=== PATIENT | female | born 1955 ===

== ENCOUNTER 2022-01-02 06:32 | Day surgery (SDC) | payer OTHER ==
[2022-01-01 15:22] LABS: Absolute Lymphocytes (CBC) 1.9 K/uL (0.7-4.9); Hematocrit 42.1 % (36.0-45.0); MPV 7.4 fL (7.6-11.3); RBC Red Blood Cell Count 4.62 M/uL (3.86-4.86)
--- NOTE | 2022-01-01 15:28 | RAD REPORT ---
EXAM DESCRIPTION: RAD - Chest Pa And Lat (2 Views) - 01/01/2022 3:21 pm CLINICAL HISTORY: Pre op Chest pain. COMPARISON: Chest Pa And Lat (2 Views) dated 10/29/2017; Chest Pa And Lat (2 Views) dated 10/13/2016; C hest Pa And Lat (2 Views) dated 10/12/2016; CHEST PA AND LAT 2 VIEW dated 09/13/2015 FINDINGS: The lungs are clear. The heart is normal in size. No displaced fractures. IMPRESSION: No acute or concerning finding suspected.
[2022-01-01 15:58] LABS: SARS-CoV-2 Antigen Rapid Res Negative (Negative)
[2022-01-02] MEDS ORDERED: Ringers Lactate 1,000 ML IV ONE (06:45)
[2022-01-02] MEDS ORDERED: LIDOCAINE 1% MPF 5 ML VIAL ONE (07:09)
[2022-01-02] MEDS ORDERED: propofoL 200 MG/20 ML VIAL IV ONE (07:09)
[2022-01-02] MEDS ORDERED: FENTANYL CITR 100 MCG/2 ML ONE (07:09)
[2022-01-02] MEDS ORDERED: MIDAZOLAM HCL 2 MG/2 ML INJ ONE (07:09)
[2022-01-02] MEDS: CEFAZOLIN SODIUM 1 GM/VIAL ONE ×2 (07:16→07:45)
[2022-01-02] MEDS ORDERED: NS 0.9% VIAL 10 ML ONE (07:54)
[2022-01-02] MEDS ORDERED: KETOROLAC 30 MG/ML INJ ONE (07:55)
[2022-01-02] MEDS ORDERED: ONDANSETRON 4 MG/2 ML VIAL ONE (08:05)
--- NOTE | 2022-01-02 08:05 | P.BOP ---
Preoperative diagnosis: tender retained foreign body right thumb Postoperative diagnosis: same Primary procedure: wound exploration under anesthesia with removal subq mass/FB R thumb Estimated blood loss: <5cc Specimen: granuloma mass with FB Findings: visualized thin curved FB on specimen Anesthesia: General Complications: None Transferred to: Recovery Room Condition: Good
[2022-01-02 09:06] VITALS: BP 109/54; TEMP 99.5; O2SAT 94
--- NOTE | 2022-01-02 12:54 | EKG ---
Test Date: 2022-01-01 Test Time: 15:01:29 [employer]: SUNDAR MEASUREMENT RESULTS: Intervals: Rate: 60 MD: 192 QRSD: 76 QT: 404 QTc: 404 [place]: P: 0 MD: 192 QRS: 29 T: 26 INTERPRETIVE STATEMENTS: Normal sinus rhythm Normal ECG Compared to ECG 10/12/2016 12:04:14 No significant changes Electronically Signed On 01-02-22 12:53:53 CDT by Zackery Greenwood
--- NOTE | 2022-01-02 13:01 | OP ---
Date of Procedure: 01/02/2022 Surgeon: Dre Figueroa MD Preoperative Diagnosis: Tender thumb with retained foreign body. Postoperative Diagnosis: Tender thumb with retained foreign body. Procedure: Wound exploration under anesthesia with removal of foreign body in the right thumb. Estimated Blood Loss: Less than 5 cc. Specimen: Granulomatous lesion with possible foreign body inside. Findings: Visualized thin, curve foreign body, may be like she claimed is a part of the cactus and v isualized on the granuloma like lesion that we excised from the area. Anesthesia: MAC plus local. Indication: This is the case of a female, who comes to us with a sore mass on the thumb. It looked like a granuloma formation. She believes she has a foreign body there. She believe it is part of a cactus. She has been trying to deal with this for a long time, trying to see if it goes away. It noland s not gone away. It is getting more tender, more pronounced. She wants that mass and the foreign jeet dy if possible removed. The benefits, alternatives, and risks of wound exploration with possible rem oval of foreign body and excision of that granuloma fully explained to the patient, which include, bu t not limited to infection, bleeding, damage to adjacent structures, anesthesia complication, recurre nce, MO, and even . She also understands that even though we remove that granuloma and that sub cutaneous mass from that region still we might not be able to find the foreign body in that area sinc e this could be organic. She understands the risks and signed the consent. Procedure In Detail: The patient was brought to the operating room, placed in supine position. Anes thesia was done without complication. A time-out was called. Right hand was prepped and draped in t he usual sterile fashion. We have an area of concern that we marked and the patient in the holding r oom. It is an area of granuloma, which is a hard nodule on the subcutaneous tissue on the volar aspe ct of the distal thumb. Using a curved knife in the form of a 3 mm circular knife, we proceeded to c arefully go and follow the tract of this foreign body. This excision included also removing the lump that the patient has in the subcutaneous tissue with the same specimen. When we put that knife dottie welch about 0.3 x 0.5 cm deep and we removed that, we were able to see specifically the something that lo oked like a foreign body like she describes which is a thin, black, spiculated area right on the spec imen. We did not see any foreign body anywhere else. This is all intact in that, so we sent the spe cimen as 1 block to be seen by the pathologist. We looked in that area and explored the area. We co uld not see any other foreign body, the mass and the lump comes with the specimen. We irrigated the area and covered with sterile dressings, left to close by secondary intention. The patient tolerated the procedure well. Local anesthesia was applied before closure. The patient was sent to recovery in stable condition. THEO/PASCUAL Voice ID: [id number] Report ID: [id number]
--- NOTE | 2022-01-02 13:01 | DS ---
Date of Discharge: 01/02/2022 Diagnosis: A mass in the thumb area with a probable retained foreign body. Procedure: Wound exploration under anesthesia with removal of foreign body/subcutaneous mass. Disposition: Home. Activity: As tolerated. No heavy lifting. Plan: Keep area dry intact until tomorrow. She may clean with soap and water and then put Bactroban over the area and sterile dressings. THEO/PASCUAL Voice ID: [id number] Report ID: [id number]
== END 2022-01-02 08:57 | disposition home or self-care (01) ==
LOC: OR 06:32
PROVIDERS: ATTEND Surgery
PROC: 0JBJ0ZZ Excision of Right Hand Subcutaneous Tissue and Fascia, Open Approach (ICD-10-PCS; principal; 2022-01-02 07:30)
DX: M60.241 Foreign body granuloma of soft tissue, not elsewhere classified, right hand (principal); Z20.822 Contact with and (suspected) exposure to COVID-19
CPT/HCPCS: 11421; 93005; 85025; 80048; 36415; 88300; 71046; 87811; J2704; J2250; J3010; J7120; J2405; J0690; 88305

== ENCOUNTER 2022-12-14 08:47 | Emergency (ER) | payer OTHER ==
--- OUTSIDE RECORDS SUMMARY | 2022-12-14 08:50 | XMS REPORT | Continuity of Care Document ---
:1955 Author Organization [facility] t Address [address] [place] [address] [place] [id number] Care Team Providers Name Role Phone GAYE SALAS Primary Care Physician Unavailable NGOC HOYOS Attending Clinician Unavailable Ngoc Hoyos MD Attending Clinician ART PENALOZA Attending Clinician Unavailable Art Penaloza MD Attending Clinician Doctor Unassigned, [place] Attending Clinician Unavailable RADIOLOGY Attending Clinician Unavailable Radiology Attending Clinician Unavailable WAQAS DEL VALLE Attending Clinician Unavailable ART PENALOZA Admitting Clinician Unavailable Art Penaloza MD Admitting Clinician CASSIE RAMIREZ Admitting Clinician Unavailable Payers Payer Name Policy Type Policy Number Effective Date Expiration Date S mel MEDICARE A B [id number] 2020 00:00:00 [facility] [id number] MEDIC[facility] PART A \T\ [id number] 2020 B 00:00:00 [facility] [id number] SUPPLEMENTAL Problems Condition Condition Condition Status Onset Resolution Last Treating Co mments Source Name Details Category Date Date Treatment Clinician Date Neuropathy Neuropath Problem Active 2021-02-07 Memoria y Active 04:11:17 l Problem Davian 02/07/2021 [facility] Hot Hot Problem Active 2021-02-07 Memor ia flushes, flushes, 04:11:17 l perimenopa perimenopa He rmann usal usal Active Problem 02/07/2021 [facility] Type 2 Type 2 Problem Active 2021-02-07 Jonnie justa diabetes diabetes 04:11:17 l mellitus mellitus [place] n with with hyperglyce hyperglyce mariluz mariluz Active Problem 02/07/2021 [facility] Prediabete Problem Active 2021-02-07 M emoria s Prediabete 04:11:17 l s Active [place] Problem 02/07/2021 [facility] Weight Weight Diagnosis Active 2020-12-29 Me moria gain gain 04:10:17 l Active [place] Diagnosis 12/29/2020 [facility] Allergies, Adverse Reactions, Alerts Allergy Allergy Status Severity Reaction(s) Onset Inactive Treating Comm ents Source Name Type Date Date Clinician ADHESIVE DRUG Active Med Rash Univers TAPE-CARMELO 2-22 ity of ICONES 00:00: [address] LATEX, Drug Active Med ITCHING Univers NATURAL Class 2-22 ity of RUBBER 00:00: [place] [facility] Adhesive Drug Active Rash Univers Tape-Carmelo Intolera 2-22 ity of icones nce 00:00: [place] [facility] Latex, Drug Active Itching Latex Univers Natural Intolera 2-22 gloves ity of Rubber nce 00:00: [address] N.K.D.A. N.K.D.A. Active Info Not Jonnie justa Available 6-24 l 00:00: Davian 00 NO KNOWN Drug Active Univers ALLERGIE Class ity of S [facility] Family History Family Member Diagnosis Comments Start Date Stop Date Source Maternal grandmother Lupus [facility] Social History Social Habit Start Date Stop Date Quantity Comments Source Gender identity 2020-11-20 Identifies as Method ist 12:53:35 female gender Hospital (finding) Sexual orientation [facility] Exposure to 2022-08-18 2022-08-28 Not sure [facility]-CoV-2 (event) 00:00:00 12:40:00 [facility] Tobacco use and 2022-08-28 2022-08-28 Smokeless tobacco Un iversity of exposure 00:00:00 00:00:00 non-user [facility] Alcohol intake 2020-08-17 2020-08-17 Ex-drinker [facility] 00:00:00 00:00:00 (finding) Hospital History of Social 2020-08-17 2020-08-[address] function 00:00:00 00:00:00 Hospital Sex Ass[birth year] OLIVIA Sanchez 00:00:00 00:00:00 [facility] Center Smoking Status Start Date Stop Date Source Tobacco smoking consumption [facility] Never smoked tobacco [facility] Medications Ordered Filled Start Stop Current Ordering Indication Dosage Frequency Signature Comments Components Source Medication Medication Date Date Medication? Clinician (SIG) Name Name lactated 2022- No 1000mL at 42 Unive rs ringers IV 09-04 mL/hr, ity of infusion 15:45: 15:42 1,000 mL, [place] as 1,000 mL 00 :00 IV Medical Infusion, Branch ONCE, 1 dose, On Fri09/04/22 at 0945, Routine, DSU Pre-op lactated 2022- No 1000mL at 42 Unive rs ringers IV 09-04 mL/hr, ity of infusion 15:45: 15:42 1,000 mL, [place] as 1,000 mL 00 :00 IV Medical Infusion, Branch ONCE, 1 dose, On Fri09/04/22 at 0945, Routine, DSU Pre-op water for 2022- No PRN, Univers irrigation 09-04 Starting ity of irrigation 15:42: 16:56 on Fri [place] solution 00 :32 09/04/22 at Medica l 0942, Branch Until Fri09/04/22 at 1056, Routine, Intra-op simethicone 2022- No PRN, Unive rs (GAS RELIEF 09-04 Starting ity of (SIMETHICON 15:41: 16:56 on Fri [place] as E)) 40 00 :32 09/04/22 at Medical mg/0.6 mL 0941, Branch drops Until Fri09/04/22 at 1056, Routine, Intra-op celecoxib 2020-07 Yes TAKE ONE Meth heena (CeleBREX) 1-10 (1) st 200 MG 00:00: CAPSULE(S) Hospi ta capsule 00 BY MOUTH l DAILY. OneTouch Yes JONGOH STU E11.65 as Memoria Ultra 6-28 directed l 00:00: Davian 00 OneTouch Yes JONGOH STU E11.65 as Memoria Ultra 6-28 directed l 00:00: Davian 00 Alcohol Yes JONGOH STU not Jonnie justa Prep Pad 6-25 defined l 04:10: Davian Glucose Yes JONGOH STU as Jonnie justa Meter Test 6-25 directed l 04:10: Davian Rosuvastati Yes JONGOH STU not Memoria n Calcium 6-25 defined l 04:10: Davian Xopenex Yes JONGOH STU not Jonnie justa 6-25 defined l 04:10: Davian Celebrex Yes JONGOH STU not Mem oria 6-25 defined l 04:10: Davian MetFORMIN Yes JONGOH STU 1 tablet Memoria HCl ER 6-25 with l 04:10: evening Davian meal Viibryd Yes JONGOH STU not Jonnie justa 6-25 defined l 04:10: Davian Levocetiriz Yes JONGOH STU not Memoria ine 6-25 defined l Dihydrochlo 04:10: [place] ride 17 Glucose Yes JONGOH STU as Jonnie justa Blood 6-25 directed l 04:10: Davian Lancet Yes JONGOH STU E11.9, as Memoria Device with 6-25 directed l Ejector 04:10: Davian 17 Lancets Yes JONGOH STU use to Me moria 6-25 check l 04:10: fingerstic [place] 17 k blood glucose Advair 0 Yes JONGOH STU not Memor ia Diskus 6-25 defined l 04:10: Davian Barker Lancets 33G 0 Yes JONGOH STU as Memoria 6-25 directed l 04:10: Davian Barker Alcohol 0 Yes JONGOH STU not Jonnie justa Prep Pad -25 defined l 04:10: Davian Barker Glucose 0 Yes JONGOH STU as Jonnie justa Meter Test 6-25 directed l 04:10: Davian Barker Rosuvastati 0 Yes JONGOH STU not Memoria n Calcium 6-25 defined l 04:10: Davian Barker Xopenex 0 Yes JONGOH STU not Jonnie justa 6-25 defined l 04:10: Davian Barker Celebrex 0 Yes JONGOH STU not Mem oria 6-25 defined l 04:10: Davian Barker MetFORMIN 0 Yes JONGOH STU 1 tablet Memoria HCl ER -25 with l 04:10: evening Davian Barker meal Viibryd 0 Yes JONGOH STU not Jonnie justa 6-25 defined l 04:10: Davian Barker Levocetiriz 0 Yes JONGOH STU not Memoria ine 6-25 defined l Dihydrochlo 04:10: Tico gutierrez 17 Advair 0 Yes JONGOH STU not Memor ia Diskus 6-25 defined l 04:10: Davian Barker Singulair 0 Yes JONGOH STU not Me moria 6-25 defined l 04:10: Davian Barker Singulair 0 Yes JONGOH STU not Me moria 6-25 defined l 04:10: Davian Barker Gabapentin 0 Yes JONGOH STU not M emoria 6-25 defined l 04:10: Davian Barker Gabapentin 0 Yes JONGOH STU not M emoria 6-25 defined l 04:10: Davian Barker Lancets 33G 0 Yes JONGOH STU as Memoria 6-25 directed l 04:10: Davian Barker Glucose 0 Yes JONGOH STU as Jonnie justa Blood 6-25 directed l 04:10: Davian Barker Lancet 2021-0 Yes JONGOH STU E11.9, as Memoria Device with 6-25 directed l Ejector 04:10: Davian 17 Lancets Yes DARRELL PERAZA use to Me moria 6-25 check l 04:10: fingerstic [place] 17 k blood glucose Lancets Yes DARRELL PERAZA R73.03, M emoria 6-04 33G, as l 00:00: directed [place] 00 Lancets Yes DARRELL PERAZA R73.03, M emoria 6-04 33G, as l 00:00: directed 00 MetFORMIN 2020-0 Yes DARRELL PERAZA 1 tablet Memoria HCl ER 6-03 with l 00:00: evening Davian 00 meal MetFORMIN Yes DARRELL PERAZA 1 tablet Memoria HCl ER 6-03 with l 00:00: evening [place] 00 meal aspirin 0 Yes 81mg QD Take 81 mg Meth heena (ECOTRIN) 2-[address] 81 MG 09:39: daily. Hospita enteric 56 l coated tablet triamcinolo Yes into each M ethodi ne 2-[address] acetonide 09:39: Hospita (NASACORT 56 l NASL) omeprazole Yes 10mg QD Take 10 mg M ethodi (PriLOSEC) 2-[address] 10 MG 09:39: daily. Hospita capsule 56 l levocetiriz Yes 5mg QD Take 5 mg M ethodi ine (Xyzal) 2-[address] 5 MG tablet 09:39: every Hospi ta 56 evening. l ascorbic 0 Yes Take by Method i acid 2-[address] (VITAMIN C 09:39: Hospita ORAL) 56 l MAGNESIUM 0 Yes Take by Metho di GLUCONATE 2-[address] ORAL 09:39: Hospita 56 l ZINC ORAL 2020-0 Yes Take by Metho di 2-[address] 09:39: Hospita 56 l MULTIVITAMI 2020-0 Yes Take by Met hodi N ORAL 2-[address] 09:39: Hospita 56 l omega-3s/dh 2020-0 Yes Take by Met hodi a/epa/fish 2-[address] oil (OMEGA 09:39: Hospita 3 ORAL) 56 l coenzyme Yes 100mg QD Take 100 Meth heena Q10 (Co 2-[address] Q-10) 100 09:39: mouth Hospita mg capsule 56 daily. l ergocalcife Yes [id number] Q7D Take Meth heena rol 2-11 50,000 [address] (Vitamin 09:39: Units by Hospi ta D2) 50,000 56 mouth once l unit a week. capsule gabapentin 2019-07 Yes Q.5D Take by Meth heena (NEURONTIN) 2-[address] 300 mg 00:00: (two) Hospita capsule 00 times a l day. levalbutero 2019-07 Yes INHALE 2 Me thodi l (XOPENEX 2-[address] HFA) 45 00:00: 4 TO 6 H Hospit a mcg/actuati 00 PRN WHILE l on inhaler AWAKE rosuvastati 2019-07 Yes 10mg QD Take 10 mg Methodi n (CRESTOR) 1-[address] 10 mg 00:00: daily. Hospita tablet 00 l Advair 2019-07 Yes INHALE ONE Metho di Diskus 1-17 (1) st 100-50 00:00: PUFF(S) BY Hospi ta mcg/dose 00 MOUTH l DISKUS TWICE DAILY. RINSE MOUTH AFTER USE. montelukast 2019-07 Yes 10mg QD Take 10 mg Methodi (SINGULAIR) 1-[address] 10 mg 00:00: daily. Hospita tablet 00 l Vital Signs Vital Name Observation Time Observation Value Comments Source Systolic blood 2022-09-04 17:10:00 120 mm[Hg] Univer sit of [facility] Diastolic blood 2022-09-04 17:10:00 88 mm[Hg] [facility] Heart rate 2022-09-04 17:10:00 60 /min [facility] Respiratory rate 2022-09-04 17:10:00 14 /min [facility] Oxygen saturation in 2022-09-04 17:10:00 96 /min [facility] Arterial blood by [facility] Pulse oximetry Branch Body temperature 2022-09-04 16:45:00 36.56 Tere [facility] Body height 2022-08-28 18:00:00 175.3 cm [facility] Body weight 2022-08-28 18:00:00 83.915 kg [facility] BMI 2022-08-28 18:00:00 27.32 kg/m2 [facility] Systolic blood 2022-09-04 17:00:00 127 mm[Hg] Univer sity of pressure [facility] Diastolic blood 2022-09-04 17:00:00 69 mm[facility]Hg] [facility] Heart rate 2022-09-04 17:00:00 59 /min [facility] Respiratory rate 2022-09-04 17:00:00 17 /min [facility] Oxygen saturation in 2022-09-04 17:00:00 95 /min [facility] Arterial blood by [facility] Pulse oximetry Branch Body temperature 2022-09-04 16:45:00 36.56 Tere [facility] Body height 2022-08-28 18:00:00 175.3 cm [facility] Body weight 2022-08-28 18:00:00 83.915 kg [facility] BMI 2022-08-28 18:00:00 27.32 kg/m2 [facility] Systolic (mm Hg) 2020-12-07 16:30:00 Jonnie rial [place] Weight 2020-12-07 16:30:00 [facility] Davian Height 2020-12-07 16:30:00 [facility] Davian Temperature Oral (F) 2020-12-07 16:30:00 92.6 F [facility] Davian Heart Rate 2020-12-07 16:30:00 [facility] Davian Diastolic (mm Hg) 2020-12-07 16:30:00 Mem orial Davian Procedures Procedure Date / Time Performing Clinician Source Performed COLONOSCOPY 2022-09-04 16:04:00 Art Penaloza [facility] COLONOSCOPY (ENDO) 2022-09-04 16:02:13 [facility] COLONOSCOPY (ENDO) 2022-09-04 16:02:13 [facility] EXTERNAL PROVIDER 2022-09-03 06:01:00 Doctor Unassigned, No [facility] EXTERNAL PROVIDER 2022-08-09 06:01:00 Doctor Unassigned, No [facility] RECORDS Name Medical Branch EXTERNAL PROVIDER 2022-08-09 06:01:00 Doctor Unassigned, No [facility] RECORDS Name Medical Branch DEXA AXIAL (HIP AND 2022-04-11 18:29:08 [facility], [facility] Medical Branch ASSIGNMENT OF BENEFITS 2022-03-25 15:50:56 Doctor Unassigned, No [facility] Name Medical Branch Plan of Care Planned Activity Planned Date Details Comments Source Future Scheduled 2023-03-[address] [facility] Test 00:00:00 (Season Ended) [code = [facility] INFLUENZA VACCINE (Season Ended)] Future Scheduled 2022-12-14 [facility] Test 05:01:26 malignant neoplasm of colon (procedure) [code = 943508200] Future Scheduled 2022-12-14 [facility] Test 05:01:26 malignant neoplasm of colon (procedure) [code = 716849686] Future Scheduled 2022-12-14 [facility] Test 05:01:26 malignant neoplasm of colon (procedure) [code = 920670320] Future Scheduled 2022-12-14 COVID-19 VACCINE (#1) [facility] Test 05:01:26 [code = COVID-19 VACCINE (#1)] Future Scheduled 2022-12-14 Hepatitis C screening [facility] Test 05:01:26 (procedure) [code = 712201253] Future Scheduled 2022-12-14 BREAST CANCER [facility] Test 05:01:26 SCREENING [code = BREAST CANCER SCREENING] Future Scheduled 2022-12-14 [facility] Test 05:01:26 malignant neoplasm of colon (procedure) [code = 491649733] Future Scheduled 2022-12-14 [facility] Test 05:01:26 malignant neoplasm of colon (procedure) [code = 777155776] Future Scheduled 2022-12-14 SHINGLES VACCINES (1 [facility] Test 05:01:26 of 2) [code = SHINGLES VACCINES (1 of 2)] Future Scheduled 2022-12-14 65+ [facility]OCOCCAL [facility] Test 05:01:26 VACCINE (1 - PCV) [code = 65+ PNEUMOCOCCAL VACCINE (1 - PCV)] Future Scheduled 2022-12-14 INFLUENZA VACCINE [facility] Hospital Test 05:01:26 [code = INFLUENZA VACCINE] Future Scheduled 2022-07-[address] [facility] Test 00:00:00 (12+) [code = Medical Center DEPRESSION SCREENING (12+)] Future Scheduled 2022-07-07 FALLS RISK SCREENING [facility] Test 00:00:00 [code = FALLS RISK Medical C enter SCREENING] Future Scheduled 2021-07-[address] [facility] Test 00:00:00 WELLNESS (YEAR 2 or Medical Center FIRST YEAR if no IPPE) [code = MEDICARE ANNUAL WELLNESS (YEAR 2 or FIRST YEAR if no IPPE)] Future Scheduled 2020 PNEUMOCOCCAL 65+ YRS [facility] Test 00:00:00 (1 - PCV) [code = Medical Ce nter PNEUMOCOCCAL 65+ YRS (1 - PCV)] Future Scheduled 2005 SHINGLES VACCINES ([address] [facility] Test 00:00:00 of 2) [code = SHINGLES Medic al Center VACCINES (1 of 2)] Future Scheduled 1974 DTAP/TDAP/TD [facility]ACCINES [facility] Test 00:00:00 (1 - Tdap) [code = Medical C enter DTAP/TDAP/TD VACCINES (1 - Tdap)] Future Scheduled 1973 HEPATITIS C [facility]CREENING [facility] 00:00:00 [code = HEPATITIS C Medical Center SCREENING] Future Scheduled [address] [facility] Test 00:00:00 Counseling and Medical Cente r Screening (12+) [code = Tobacco Cessation Counseling and Screening (12+)] Future Scheduled 1956-01-15 COVID-19 VACCINE (#1) [facility] Test 00:00:00 [code = COVID-[address] VACCINE (#1)] Future Scheduled [address] [facility] Test 00:00:00 malignant neoplasm of Medica l Center colon (procedure) [code = 331754925] Future Scheduled [address] [facility] [facility] Test 00:00:00 malignant neoplasm of [facility] colon (procedure) [code = 238301251] Future Scheduled 1955 DXA SCAN [code = DXA [facility] Test 00:00:00 SCAN] [facility] Future Scheduled [address] [facility] Test 00:00:00 malignant neoplasm of [facility] colon (procedure) [code = 730070815] Future Scheduled [address] [facility] Test 00:00:00 malignant neoplasm of [facility] colon (procedure) [code = 972726922] Future Scheduled 1955 Sigmoidoscopy [code = [facility]:00:00 Sigmoidoscopy] [facility] Future Scheduled [address] [facility] Test 00:00:00 malignant neoplasm of [facility] breast (procedure) [code = 078762792] Future Scheduled [address] Colonography [facility] Test 00:00:00 (combo) [code = CT Medical C enter Colonography (combo)] Encounters Start End Encounter Admission Attending Care Care Encounter Source Date/Time Date/Time Type Type Clinicians Facility Department ID 2022-12-14 Outpatient [id number] Memoria 08:49:20 [id number] Davian [id number] 2022-09-04 Outpatient [id number] Memoria 09:26:48 [id number] Davian [id number] 2021-09-06 Outpatient [facility] [id number] Common 13:38:02 [facility] 2023-01-02 2023-01-02 Outpatient TUSHAR HOYOS [facility] [id number] SLE 00:00:00 00:00:00 NGOC 2022-12-17 2022-12-17 Outpatient TUSHAR HOYOS [facility] [id number] SLEH 00:00:00 00:00:00 [facility] 2022-12-10 2022-12-10 Outside Soha [facility] [id number] 00:[facility]00 00:00:00 Orders [facility] 2022-12-04 2022-12-04 [facility] [id number] 08:00:00 08:00:00 Encounter Aknino [facility] 2022-12-04 2022-12-04 Outpatient TUSHAR HOYOS [facility] [id number] SLE 00:00:00 00:00:00 [facility] 2022-11-04 2022-11-04 [facility] [id number] 00:[facility]:00 00:00:00 Orders [facility] 2022-09-04 2022-09-04 Outpatient R [facility] [id number] Univers 09:12:00 11:24:00 ART Escobar f [facility] 2022-09-04 2022-09-04 [facility] [id number] Univers 09:12:00 11:24:00 Encounter Art escobar [id number] ity [facility] [id number]ICAL [id number] [facility] 071 Branch 2022-09-04 2022-09-04 Surgery [facility] [id number] Univers 10:23:00 11:02:00 Art escobar [id number] ity [facility] [id number] [id number] [facility] 020 Branch 2022-09-03 2022-09-03 Orders Doctor MEJIA [id number] Univers 00:00:00 00:00:00 Only Unassigned, DAVID [id number] ity of [place] [facility] [id number] [place] as [id number] [facility] 009 Branch 2022-04-11 2022-04-11 Outpatient R RADIOLOGY [facility] [id number] Univers 13:08:41 23:59:00 ity of [facility] 2022-04-11 2022-04-11 Hospital Radiology [facility] [id number] Univers 13:08:41 23:59:00 Encounter [place] [id number] ity of [id number] [place] [id number] [facility] 800 Branch 2022-04-04 2022-04-04 Outpatient R RADIOLOGY [facility] [id number] Univers 00:00:00 00:00:00 ity of [facility] 2022-03-25 2022-03-25 [facility] Radiology [facility] [id number] Univers 11:00:41 23:59:00 Encounter [place] [id number] ity of [place] [id number] [facility] [id number] [facility] 800 Branch 2022-03-25 2022-03-25 Outpatient R RADIOLOGY [facility] [id number] Univers 11:00:41 23:59:00 ity of [facility] 2022-03-25 2022-03-25 Orders Doctor MEJIA [id number] Univers 00:00:00 00:00:00 Only Unassigned, DAVID [id number] [facility] [id number] [place] [id number] [facility] 009 Branch 2021-01-24 2021-01-24 Outpatient Endocrine Endocrine & [id number] eClinic 16:24:00 16:24:00 & Diabetes Gloria calix [facility] [place] [facility] 2021-01-03 2021-01-03 Outpatient Endocrine Endocrine & [id number] eClinic 12:50:00 12:50:00 & Diabetes Gloria calix [facility] [place] [facility] 2021-01-01 2021-01-01 Outpatient Endocrine Endocrine & [id number] eClinic 16:32:00 16:32:00 & Diabetes alWor ks [facility] 2020-12-28 2020-12-28 Outpatient CONFIRM CONFIRM [id number] eClinic 10:15:00 10:15:00 VIRTUAL VIRTUAL alWork s 2020-12-12 2020-12-12 Outpatient Endocrine Endocrine & [id number] eClinic 10:26:00 10:26:00 & Diabetes alWor ks [facility], [facility] [place] [facility] 2020-12-12 2020-12-12 Outpatient Endocrine Endocrine & [id number] eClinic 09:45:00 09:45:00 & Diabetes alWor ks [facility] Plus of [facility], [facility] [place] [facility] 2020-12-12 2020-12-12 Outpatient Endocrine Endocrine & [id number] eClinic 09:41:00 09:41:00 & Diabetes alWor ks [facility] Plus of [facility], [facility] [place] [facility] 2020-12-08 2020-12-08 Outpatient Endocrine Endocrine & [id number] eClinic 16:27:00 16:27:00 & Diabetes alWor ks [facility] Plus of [facility], [facility] [place] [facility] 2020-12-08 2020-12-08 Outpatient Endocrine Endocrine & [id number] eClinic 16:27:00 16:27:00 & Diabetes alWor ks [facility] Plus of [facility], [facility] [place] [facility] 2020-12-08 2020-12-08 Outpatient Endocrine Endocrine & [id number] eClinic 15:33:00 15:33:00 & Diabetes alWor ks [facility] of [facility], Office [place] [facility] 2020-12-07 2020-12-07 Outpatient Endocrine Endocrine & [id number] eClinic 11:30:00 11:30:00 & Diabetes alWor ks [facility] Plus of [facility], Office [place] [facility] 2020-11-22 2020-11-22 Outpatient [facility] [id number] [place] 00:00:00 00:00:00 MOHAMMED [address] 2020-08-17 2020-08-17 Outpatient [facility] [id number] 785 [place] 00:00:00 00:00:[address] Results This patient has no known results.
[2022-12-14] MEDS ORDERED: NA CHLORIDE 0.9% 1,000 ML ONE ×2 (09:33→10:52)
[2022-12-14] MEDS ORDERED: KETOROLAC 30 MG/ML INJ ONE (09:33)
[2022-12-14] MEDS ORDERED: PROMETHAZINE INJ 25 MG/ML AMP ONE (09:33)
[2022-12-14] MEDS ORDERED: NA CHLORIDE 0.9% 250 ML ONE (09:33)
[2022-12-14] MEDS ORDERED: FAMOTIDINE 20 MG/2 ML VIAL IV ONE (09:33)
--- NOTE | 2022-12-14 09:38 | RAD REPORT ---
[facility] 9:19 am CLINICAL HISTORY: KIDNEY STONES COMPARISON: No comparisons TECHNIQUE: CT of the abdomen and pelvis was performed. All CT scans are performed using dose optimization technique as appropriate and may include automated exposure control or mA/KV adjustment according to patient size. FINDINGS: Lower chest: No acute abnormality. Partially imaged breast prostheses. Liver: No acute abnormality or suspicious lesions. Biliary: No biliary ductal dilatation. Cholecystectomy Stomach: No significant focal abnormality. Duodenum: No significant focal abnormality. Pancreas: No significant abnormality. Spleen: No significant abnormality. Adrenal: No suspicious lesions. Kidney/ureter: Right-sided hydroureteronephrosis secondary to a 3 mm stone impacted at the right UVJ. Retroperitoneum: No retroperitoneal adenopathy. Vascular: No aneurysm. Bowel: No significant focal abnormality. Peritoneum: No ascites or free air. Small fat containing umbilical hernia. Bladder: Grossly unremarkable. Reproductive: No adnexal masses. Bones: No acute fracture. Other: n/a IMPRESSION: Mild right-sided hydroureteronephrosis secondary to a 3 mm stone at the right UVJ.
[2022-12-14] MEDS ORDERED: HYDROMORPHONE HCL 1 MG/ML INJ ONE (10:02)
[2022-12-14 10:05] LABS: Hematocrit 41.8 % (36.0-45.0); Lymphocytes % 20.6 % (15.3-44.8); MCV 91.6 fL (80-100); MPV 7.3 fL (7.6-11.3); RBC Red Blood Cell Count 4.56 M/uL (3.86-4.86)
[2022-12-14 10:15] LABS: Urine Bacteria <20 /HPF (<20); Urine Bilirubin NEGATIVE (Negative); Urine Blood 1+ (Negative); Urine Clarity Extremely Turbid (Clear); Urine Color Light-Yellow (Yellow); Urine Crystals Unidentified Few /HPF (None Seen); Urine Glucose NEGATIVE (Negative); Urine Mucus Slight /HPF (None Seen); Urine Protein TRACE (Negative); Urine RBC 21-50 /HPF (None Seen); Urine Urobilinogen Normal (Normal)
[2022-12-14 10:23] LABS: Albumin 3.6 g/dL (3.4-5.0); Bilirubin Total 0.5 mg/dL (0.2-1.0); Potassium 3.3 mEq/L (3.5-5.1); Protein, Total 7.3 g/dL (6.4-8.2)
[2022-12-14] MEDS ORDERED: NA CHLORIDE 0.9% 50 ML ONE (10:37)
[2022-12-14] MEDS ORDERED: CEFTRIAXONE 2000 MG/VIAL ONE (10:37)
[2022-12-14] MEDS ORDERED: TAMSULOSIN 0.4 MG SR CAP ONE (10:52)
--- NOTE | 2022-12-14 11:13 | ER ---
Nurse's Notes [facility] Name: Monet Beverly Age: 67 yrs Sex: Female : 1955 Arrival Date: 12/14/2022 Time: 08:47 Bed 16 Private MD: Diagnosis: Hydronephrosis with renal and ureteral calculous obstruction Presentation: 12/14 09:06 Chief complaint: Patient states: R FLANK PAIN RADIATING TO R GROIN SINCE LAST PM. bp Coronavirus screen: At this time, the client does not indicate any symptoms associated with coronavirus-19. Ebola Screen: No symptoms or risks identified at this time. Initial Sepsis Screen: Does the patient meet any 2 criteria? No. Patient's initial sepsis screen is negative. Does the patient have a suspected source of infection? No. Patient's initial sepsis screen is negative. Risk Assessment: Do you want to hurt yourself or someone else? Patient reports no desire to harm self or others. Onset of symptoms was December 14, 2022. 09:06 Method Of Arrival: Ambulatory bp 09:06 Acuity: CARROLL 3 bp Triage Assessment: 09:07 General: Appears distressed, uncomfortable, Behavior is cooperative, appropriate for bp age, anxious. Pain: Complains of pain in right flank. EENT: No deficits noted. Neuro: No deficits noted. Cardiovascular: No deficits noted. Respiratory: No deficits noted. GI: No signs and/or symptoms were reported involving the gastrointestinal system. : Reports pain in right flank(s). Derm: No deficits noted. Musculoskeletal: No deficits noted. Historical: - Allergies: 09:07 Latex, Natural Rubber; bp - Home Meds: 09:07 None [Active]; bp - PMHx: 09:07 None; bp - Immunization history:: Adult Immunizations. - Social history:: Smoking status: . Screenin:15 [facility] ED Fall Risk Assessment (Adult) Score/Fall Risk Level 0 - 2 = Low Risk. Abuse eh3 screen: Denies threats or abuse. Denies injuries from another. Nutritional screening: No deficits noted. Tuberculosis screening: No symptoms or risk factors identified. Assessment: 09:15 General: Appears distressed, uncomfortable. Pain: Complains of pain in right lower eh3 quadrant and right low back and right flank Pain currently is 10 out of 10 on a pain scale. Neuro: Level of Consciousness is awake, alert, obeys commands, Oriented to person, place, time, situation. Cardiovascular: Capillary refill < 3 seconds Patient's skin is warm and dry. Respiratory: Airway is patent Respiratory effort is even, unlabored, Respiratory pattern is regular, symmetrical. GI: Abdomen is round non-distended, Bowel sounds present X 4 quads. Abd is soft X 4 quads Abdomen is tender to palpation in right lower quadrant. : No signs and/or symptoms were reported regarding the genitourinary system. EENT: No signs and/or symptoms were reported regarding the EENT system. Derm: Skin is pink, warm \T\ dry. Musculoskeletal: No signs and/or symptoms reported regarding the musculoskeletal system. 10:00 Reassessment: Patient appears in no apparent distress at this time. Patient and/or eh3 family updated on plan of care and expected duration. Pain level reassessed. Patient is alert, oriented x 3, equal unlabored respirations, skin warm/dry/pink. Patient states symptoms have improved. 11:00 Reassessment: Patient appears in no apparent distress at this time. Patient and/or eh3 family updated on plan of care and expected duration. Pain level reassessed. Patient is alert, oriented x 3, equal unlabored respirations, skin warm/dry/pink. 12:00 Reassessment: Patient appears in no apparent distress at this time. Patient and/or eh3 family updated on plan of care and expected duration. Pain level reassessed. Patient is alert, oriented x 3, equal unlabored respirations, skin warm/dry/pink. Pt ambulated with steady gate 25 feet, no assistance needed. Vital Signs: 09:06 BP 139 / 79; Pulse 65; Resp 16; Temp 97.5; Pulse Ox 100% ; bp 09:45 BP 124 / 67; Pulse 88; Resp 18; Pulse Ox 100% on R/A; eh3 10:00 BP 139 / 68; Pulse 69; Resp 18; Pulse Ox 99% on R/A; eh3 11:00 BP 125 / 55; Pulse 58; Resp 18; Pulse Ox 95% on R/A; eh3 12:00 BP 134 / 71; Pulse 58; Resp 18; Pulse Ox 98% on R/A; eh3 ED Course: 08:49 Patient arrived in ED. ts1 08:58 Gemini Rivas FNP-C [facility] snw 08:58 Maykel Davila MD is Attending Physician. snw 09:07 Triage completed. bp 09:15 Patient has correct armband on for positive identification. Bed in low position. Call eh3 light in reach. Side rails up X2. Adult w/ patient. Pulse ox on. NIBP on. Door closed. Noise minimized. Lights dimmed. 09:15 Arm band placed on. eh3 09:17 Anat Brody RN is Primary Nurse. eh3 09:20 CT Stone Protocol In Process Unspecified. EDMS 09:35 Inserted saline lock: 20 gauge in left antecubital area, using aseptic technique. Blood eh3 collected. 12:07 No provider procedures requiring assistance completed. IV discontinued, intact, eh3 bleeding controlled, No redness/swelling at site. Pressure dressing applied. Administered Medications: 09:35 Drug: NS 0.9% IV 1000 ml Route: IV; Rate: 1 bolus; Site: left antecubital; eh3 10:30 Follow up: IV Status: Completed infusion; IV Intake: 1000ml eh3 09:35 Drug: Famotidine IVP 20 mg Route: IVP; Site: left antecubital; eh3 10:30 Follow up: Response: No adverse reaction eh3 09:35 Drug: TORadol - Ketorolac IVP 15 mg Route: IVP; Site: left antecubital; eh3 10:30 Follow up: Response: No adverse reaction eh3 09:40 Drug: Promethazine IVP 25 mg Route: IVP; Site: left antecubital; eh3 10:30 Follow up: Response: No adverse reaction eh3 09:40 Drug: NS 0.9% IV 250 ml Route: IV; Rate: bolus; Site: left antecubital; eh3 10:30 Follow up: IV Status: Completed infusion; IV Intake: 250ml eh3 09:58 Drug: HYDROmorphone IVP 1 mg Route: IVP; Site: left antecubital; eh3 10:30 Follow up: Response: No adverse reaction; Pain is decreased eh3 10:45 Drug: Rocephin IV 2 grams Route: IV; Rate: calculated rate; Site: left antecubital; eh3 11:29 Follow up: Response: No adverse reaction; IV Status: Completed infusion; IV Intake: [id number] 10:45 Drug: Flomax PO 0.4 mg Route: PO; eh3 11:30 Follow up: Response: No adverse reaction eh3 10:45 Drug: NS 0.9% IV 1000 ml Route: IV; Rate: 1000 ml; Site: left antecubital; eh3 12:06 Follow up: IV Status: Completed infusion; IV Intake: 1000ml eh3 Medication: 12:07 VIS not applicable for this client. eh3 Intake: 10:30 IV: 1000ml; Total: 1000ml. eh3 10:30 IV: 250ml; Total: 1250ml. eh3 11:29 IV: 50ml; Total: 1300ml. eh3 12:06 IV: 1000ml; Total: 2300ml. eh3 Outcome: 11:12 Discharge ordered by . snw 12:08 Discharged to home ambulatory, with significant other. eh3 12:08 Condition: stable 12:08 Discharge instructions given to patient, significant other, Instructed on discharge instructions, follow up and referral plans. medication usage, Demonstrated understanding of instructions, follow-up care, medications, Prescriptions given X 3. 12:17 Patient left the ED. eh3 Signatures: Dispatcher [employer] EDMS Gemini Rivas, MACHINE OVERHAULER-C MACHINE OVERHAULER-Csnw Michael Orozco RN RN Anat Ching RN RN 3 Rosa Perez, CLOVER PAS ts1 Corrections: (The following items were deleted from the chart) 10:17 09:45 Reassessment: Patient appears in no apparent distress at this time. Patient eh3 and/or family updated on plan of care and expected duration. Pain level reassessed. Patient is alert, oriented x 3, equal unlabored respirations, skin warm/dry/pink. Patient states symptoms have improved. eh3
--- NOTE | 2022-12-14 11:13 | EDPHYS ---
Physician Documentation [facility] Name: Monet Beverly Age: 67 yrs Sex: Female : 1955 Arrival Date: 12/14/2022 Time: 08:47 Bed 16 Private MD: ED Physician Maykel Davila HPI: 12/14 09:11 This 67 yrs old Unknown Female presents to ER via Ambulatory with complaints of snw Abdominal Pain, Back Pain. 09:11 The patient presents with abdominal pain right lower quadrant. Onset: The snw symptoms/episode began/occurred suddenly, and became persistent. The symptoms radiate to right back. Associated signs and symptoms: Pertinent positives: nausea and vomiting. The symptoms are described as sharp, steady. Severity of pain: At its worst the pain was moderate severe in the emergency department the pain is unchanged. The patient has not experienced similar symptoms in the past. The patient has not recently seen a physician. Historical: - Allergies: 09:07 Latex, Natural Rubber; bp - Home Meds: 09:07 None [Active]; bp - PMHx: 09:07 None; bp - Immunization history:: Adult Immunizations. - Social history:: Smoking status: . ROS: 09:09 Eyes: Negative for injury, pain, redness, and discharge, ENT: Negative for injury, snw pain, and discharge, Neck: Negative for injury, pain, and swelling, Cardiovascular: Negative for chest pain, palpitations, and edema, Respiratory: Negative for shortness of breath, cough, wheezing, and pleuritic chest pain, MS/Extremity: Negative for injury and deformity, Skin: Negative for injury, rash, and discoloration, Neuro: Negative for headache, weakness, numbness, tingling, and seizure, Psych: Negative for depression, anxiety, suicide ideation, homicidal ideation, and hallucinations. 09:09 Constitutional: Positive for right lower quad pain that awoke patient from sleep, pain goes straight through abd to right lower back, sharp in nature. . 09:09 Abdomen/GI: Positive for abdominal pain, nausea, vomiting, of the right lower quadrant. 09:09 Back: Positive for radiated pain, of the right low back. 09:09 : Positive for urinary symptoms. Exam: 09:07 Head/Face: Normocephalic, atraumatic. Eyes: Pupils equal round and reactive to light, snw extra-ocular motions intact. Lids and lashes normal. Conjunctiva and sclera are non-icteric and not injected. Cornea within normal limits. Periorbital areas with no swelling, redness, or edema. ENT: Nares patent. No nasal discharge, no septal abnormalities noted. Tympanic membranes are normal and external auditory canals are clear. Oropharynx with no redness, swelling, or masses, exudates, or evidence of obstruction, uvula midline. Mucous membranes moist. Neck: Trachea midline, no thyromegaly or masses palpated, and no cervical lymphadenopathy. Supple, full range of motion without nuchal rigidity, or vertebral point tenderness. No Meningismus. Chest/axilla: Normal chest wall appearance and motion. Nontender with no deformity. No lesions are appreciated. Cardiovascular: Regular rate and rhythm with a normal S1 and S2. No gallops, murmurs, or rubs. Normal PMI, no JVD. No pulse deficits. Respiratory: Lungs have equal breath sounds bilaterally, clear to auscultation and percussion. No rales, rhonchi or wheezes noted. No increased work of breathing, no retractions or nasal flaring. Abdomen/GI: Soft, tender to right lower quad with normal bowel sounds. No distension or tympany. No guarding or rebound. Back: No spinal tenderness. No costovertebral tenderness. Full range of motion. right lower back pain Skin: Warm, dry with normal turgor. Normal color with no rashes, no lesions, and no evidence of cellulitis. MS/ Extremity: Pulses equal, no cyanosis. Neurovascular intact. Full, normal range of motion. Neuro: Awake and alert, GCS 15, oriented to person, place, time, and situation. Cranial nerves II-XII grossly intact. Motor strength 5/5 in all extremities. Sensory grossly intact. Cerebellar exam normal. Normal gait. 09:07 Constitutional: The patient appears alert, awake, anxious, in obvious pain, uncomfortable. 09:07 Psych: Behavior/mood is anxious. Vital Signs: 09:06 BP 139 / 79; Pulse 65; Resp 16; Temp 97.5; Pulse Ox 100% ; bp 09:45 BP 124 / 67; Pulse 88; Resp 18; Pulse Ox 100% on R/A; eh3 10:00 BP 139 / 68; Pulse 69; Resp 18; Pulse Ox 99% on R/A; eh3 11:00 BP 125 / 55; Pulse 58; Resp 18; Pulse Ox 95% on R/A; eh3 12:00 BP 134 / 71; Pulse 58; Resp 18; Pulse Ox 98% on R/A; eh3 MDM: 08:59 Patient medically screened. snw 11:17 Differential diagnosis: non-specific abd pain, Pyelonephritis, Ureterolithiasis, snw urinary tract infection. Data reviewed: vital signs, nurses notes. I considered the following discharge prescriptions or medication management in the emergency department Medications were administered in the Emergency Department. See MAR. Counseling: I had a detailed discussion with the patient and/or guardian regarding: the historical points, exam findings, and any diagnostic results supporting the discharge/admit diagnosis, lab results, radiology results, the need for outpatient follow up, for definitive care, to return to the emergency department if symptoms worsen or persist or if there are any questions or concerns that arise at home. Response to treatment: the patient's symptoms have markedly improved after treatment. Special discussion: Based on the patient's Hx, exam, and Dx evaluation, there is no indication for emergent surgery or inpatient Tx. It is understood by the patient/guardian that if the Sx's persist or worsen they need to return immediately for re-evaluation. Based on the history and exam findings, there is no indication for further emergent testing or inpatient evaluation. I discussed with the patient/guardian the need to see the urologist for further evaluation of the symptoms. 11:47 ED course: Significantly improved, pt encouraged to stay hydrated, change positions snw slowly. 12/14 09:06 Order name: CBC with Diff; Complete Time: 10:11 snw 12/14 09:06 Order name: CMP; Complete Time: 10:26 snw 12/14 09:06 Order name: Lipase; Complete Time: 10:26 snw 12/14 09:06 Order name: Urinalysis w/ reflexes; Complete Time: 10:26 snw 12/14 10:29 Order name: Urine Culture EDMS 12/14 09:06 Order name: CT Stone Protocol; Complete Time: 09:40 snw 12/14 09:06 Order name: IV Saline Lock; Complete Time: 09:58 snw 12/14 09:06 Order name: Labs collected and sent; Complete Time: 09:58 snw 12/14 11:48 Order name: [facility]. Order: ambulate pt please; Complete Time: 12:06 snw Administered Medications: 09:35 Drug: NS 0.9% IV 1000 ml Route: IV; Rate: 1 bolus; Site: left antecubital; eh3 10:30 Follow up: IV Status: Completed infusion; IV Intake: 1000ml eh3 09:35 Drug: Famotidine IVP 20 mg Route: IVP; Site: left antecubital; eh3 10:30 Follow up: Response: No adverse reaction eh3 09:35 Drug: TORadol - Ketorolac IVP 15 mg Route: IVP; Site: left antecubital; eh3 10:30 Follow up: Response: No adverse reaction eh3 09:40 Drug: Promethazine IVP 25 mg Route: IVP; Site: left antecubital; eh3 10:30 Follow up: Response: No adverse reaction eh3 09:40 Drug: NS 0.9% IV 250 ml Route: IV; Rate: bolus; Site: left antecubital; eh3 10:30 Follow up: IV Status: Completed infusion; IV Intake: 250ml eh3 09:58 Drug: HYDROmorphone IVP 1 mg Route: IVP; Site: left antecubital; eh3 10:30 Follow up: Response: No adverse reaction; Pain is decreased eh3 10:45 Drug: Rocephin IV 2 grams Route: IV; Rate: calculated rate; Site: left antecubital; eh3 11:29 Follow up: Response: No adverse reaction; IV Status: Completed infusion; IV Intake: [id number] 10:45 Drug: Flomax PO 0.4 mg Route: PO; eh3 11:30 Follow up: Response: No adverse reaction eh3 10:45 Drug: NS 0.9% IV 1000 ml Route: IV; Rate: 1000 ml; Site: left antecubital; eh3 12:06 Follow up: IV Status: Completed infusion; IV Intake: 1000ml eh3 Disposition: 13:05 Co-signature as Attending Physician, Maykel Davila MD I reviewed the patient's care rn provided by the Advanced Practice Provider and agree with the diagnosis and treatment plan. Disposition Summary: 12/14/22 11:12 Discharge Ordered Location: Home snw Condition: Stable snw Diagnosis - Hydronephrosis with renal and ureteral calculous obstruction snw Followup: snw - With: Emergency Department - When: As needed - Reason: Worsening of condition Followup: snw - With: Private Physician - When: 1 - 2 days - Reason: Recheck today's complaints, Continuance of care, Re-evaluation by your physician Discharge Instructions: - Discharge Summary Sheet snw - Kidney Stones snw - Renal Colic snw - Hydronephrosis snw - Dietary Guidelines to Help Prevent Kidney Stones snw - Rehydration, Adult snw Forms: - Medication Reconciliation Form snw - Thank You Letter snw - Antibiotic Education snw - Prescription Opioid Use snw Prescriptions: - acetaminophen-codeine 300-15 mg Oral tablet - take 1 tablet by ORAL route every 6 hours; 21 tablet; Refills: 0, Product snw Selection Permitted - Augmentin 875-125 mg Oral Tablet - take 1 tablet by ORAL route every 12 hours for 10 days; 20 tablet; Refills: 0, snw Product Selection Permitted - promethazine 25 mg Oral Tablet - take 1 tablet by ORAL route every 6 hours As needed; 20 tablet; Refills: 0, snw Product Selection Permitted Signatures: Dispatcher [employer] EDMS Gemini Rivas, BILLING SPECIALIST-C BILLING SPECIALIST-Csnw Maykel Davila MD MD rn Peltier, Brian RN RN Anat Ching RN RN 3
[2022-12-14 12:36] VITALS: TEMP 97.5
[2022-12-14 12:53] VITALS: BP 134/71; O2SAT 98
== END 2022-12-14 12:17 | disposition home or self-care (01) ==
LOC: ER 08:47
DX: N13.2 Hydronephrosis with renal and ureteral calculous obstruction (principal); Z91.040 Latex allergy status; Z91.048 Other nonmedicinal substance allergy status
CPT/HCPCS: 96365; 96367; 96361; 87088; 85025; 81001; 87086; 36415; 83690; 80053; 76377; 74176; 96375; 99285; J2550; J1170; J0696; J7050; J7030 ×2

== ENCOUNTER 2022-12-14 18:12 | Emergency (ER) | payer OTHER ==
--- OUTSIDE RECORDS SUMMARY | 2022-12-14 18:16 | XMS REPORT | Continuity of Care Document ---
:[address] [facility] t Address [address] [place] [address] [place] [id number] Care Team Providers Name Role Phone Enmanuel Pettity Primary Care Physician NGOC DELACRUZ Attending Clinician Unavailable Ngoc Delacruz MD Attending Clinician ART VARELA Attending Clinician Unavailable Art Varela MD Attending Clinician Doctor Unassigned, [place] Attending Clinician Unavailable RADIOLOGY Attending Clinician Unavailable Radiology Attending Clinician Unavailable WAQAS DEL VALLE Attending Clinician Unavailable ART VARELA Admitting Clinician Unavailable Art Varela MD Admitting Clinician CASSIE RAMIREZ Admitting Clinician Unavailable Payers Payer Name Policy Type Policy Number Effective Date Expiration Date S mel MEDICARE A B [id number] 2020 00:00:00 [facility] [id number] MEDICARE PART A \T\ [id number] 2020 B 00:00:00 [facility] [id number] SUPPLEMENTAL Problems Condition Condition Condition Status Onset Resolution Last Treating Co mments Source Name Details Category Date Date Treatment Clinician Date Neuropathy Neuropath Problem Active 2021-02-07 Memoria y Active 04:11:17 l Problem [place] 02/07/2021 [facility] Hot Hot Problem Active 2021-02-07 Memor ia flushes, flushes, 04:11:17 l perimenopa perimenopa He rmann usal usal Active Problem 02/07/2021 [facility] Type 2 Type 2 Problem Active 2021-02-07 Jonnie justa diabetes diabetes 04:11:17 l mellitus mellitus Tico n with with hyperglyce hyperglyce mariluz mariluz Active Problem 02/07/2021 [facility] Prediabete Prediabet Problem Active 2021-02-07 Memoria s es Active 04:11:17 l Problem [place] 02/07/2021 [facility] Weight Weight Diagnosis Active 2020-12-29 Me moria gain gain 04:10:17 l Active [place] Diagnosis 12/29/2020 [facility] Allergies, Adverse Reactions, Alerts Allergy Allergy Status Severity Reaction(s) Onset Inactive Treating Comm ents Source Name Type Date Date Clinician ADHESIVE DRUG Active Med Rash Univers TAPE-CARMELO 2-22 ity of ICONES 00:00: [address] LATEX, Drug Active Med ITCHING Univers NATURAL Class 2-22 ity of RUBBER 00:00: [place] [facility] Adhesive Drug Active Rash Univers Tape-Carmelo Intolera 2-22 ity of icones nce 00:00: [place] [facility] Latex, Drug Active Itching Latex Univers Natural Intolera 2-22 gloves ity of Rubber nce 00:00: [address] N.K.D.A. N.K.D.A. Active Info Not Jonnie justa Available 6-24 l 00:00: Davian 00 NO KNOWN Drug Active Univers ALLERGIE Class ity of S [facility] Family History Family Member Diagnosis Comments Start Date Stop Date Source Maternal grandmother Lupus [facility] Social History Social Habit Start Date Stop Date Quantity Comments Source Gender identity 2020-11-20 Identifies as [facility] 12:53:35 female gender Hospital (finding) Sexual orientation [facility] Exposure to 2022-08-18 2022-08-28 Not sure University SARS-CoV-2 (event) 00:00:00 12:40:00 [facility] Tobacco use and 2022-08-28 2022-08-28 Smokeless tobacco Un iversity of exposure 00:00:00 00:00:00 non-user [facility] Alcohol intake 2020-08-17 2020-08-17 Ex-drinker [facility] 00:00:00 00:00:00 (finding) Hospital History of Social 2020-08-17 2020-08-[address] function 00:00:00 00:00:00 Hospital Sex Ass[birth year] OLIVIA Sanchez 00:00:00 00:00:00 [facility] Smoking Status Start Date Stop Date Source Tobacco smoking consumption [facility] Never smoked tobacco [facility] Medications Ordered Filled Start Stop Current Ordering [...] ta capsule 00 BY MOUTH l DAILY. celecoxib 2020-07 Yes TAKE ONE Meth heena (CeleBREX) 1-10 (1) st 200 MG 00:00: CAPSULE(S) Hospi ta capsule 00 BY MOUTH l DAILY. OneTouch Yes ANELNGOH STU E11.65 as Memoria Ultra 6-28 directed l 00:00: Davian 00 OneTouch Yes JONGOH STU E11.65 as Memoria Ultra 6-28 directed l 00:00: Davian 00 OneTouch Yes JONGOH STU E11.65 as Memoria Ultra 6-28 directed l 00:00: [place] 00 Lancets Yes JONGOH STU use to Me moria 6-25 check l 04:10: fingerstic Davian k blood glucose Alcohol Yes DARRELL PERAZA not Jonnie justa Prep Pad 6-25 defined l 04:10: Davian Glucose Yes JONGOH STU as Jonnie justa Meter Test 6-25 directed l 04:10: Davian Rosuvastati Yes JONGOH STU not Memoria n Calcium 6-25 defined l 04:10: Davian Xopenex Yes JONGOH STU not Jonnie justa 6-25 defined l 04:10: Davian Celebrex Yes JONGOH STU not Mem oria 6-25 defined l 04:10: Davian MetFORMIN Yes JOJULIO C STU 1 tablet Memoria HCl ER 6-25 with l 04:10: evening Davian meal Viibryd Yes JONGOH STU not Jonnie justa 6-25 defined l 04:10: Davian Levocetiriz Yes JONGOH STU not Memoria ine 6-25 defined l Dihydrochlo 04:10: Tico gutierrez 17 Advair Yes JONGOH STU not Memor ia Diskus 6-25 defined l 04:10: Davian Barker Singulair 0 Yes JONGOH STU not Me moria 6-25 defined l 04:10: Davian Barker Glucose Yes JONGOH STU as Jonnie justa Blood 6-25 directed l 04:10: Davian 17 Lancet 0 Yes JONGOH STU E11.9, as Memoria Device with 6-25 directed l Ejector 04:10: Davian 17 Lancets Yes JONGOH STU use to Me moria 6-25 check l 04:10: fingerstic Davian 17 k blood glucose Lancets 33G 0 Yes JONGOH STU as Memoria 6-25 directed l 04:10: Davian Barker Alcohol Yes JONGOH STU not Jonnie justa Prep Pad 6-25 defined l 04:10: Davian Barker Gabapentin 0 Yes JONGOH STU not M emoria 6-25 defined l 04:10: Davian Barker Glucose 0 Yes JONGOH STU as Jonnie justa Meter Test 6-25 directed l 04:10: Davian Barker Rosuvastati Yes JONGOH STU not Memoria n Calcium 6-25 defined l 04:10: Davian Barker Xopenex Yes JONGOH STU not Jonnie justa 6-25 defined l 04:10: Davian Barker Celebrex Yes JONGOH STU not Mem oria 6-25 defined l 04:10: Davian Barker MetFORMIN 0 Yes JONGOH STU 1 tablet Memoria HCl ER 6-25 with l 04:10: evening Davian Barker meal Viibryd Yes JONGOH STU not Jonnie justa 6-25 defined l 04:10: Davian Barker Levocetiriz 0 Yes JONGOH STU not Memoria ine 6-25 defined l Dihydrochlo 04:10: Tico gutierrez 17 Advair Yes JONGOH STU not Memor ia Diskus 6-25 defined l 04:10: Davian Barker Singulair Yes JONGOH STU not Me moria 6-25 defined l 04:10: Davian Barker Gabapentin 0 Yes JONGOH STU not M emoria 6-25 defined l 04:10: Davian Barker Glucose 0 Yes JONGOH STU as Jonnie justa Blood 6-25 directed l 04:10: Davian Barker Lancet 0 Yes JONGOH STU E11.9, as Memoria Device with 6-25 directed l Ejector 04:10: Davian 17 Lancets 0 Yes JONGOH STU use to Me moria 6-25 check l 04:10: fingerstic Davian 17 k blood glucose Lancets 33G 0 Yes JONGOH STU as Memoria 6-25 directed l 04:10: Davian Barker Alcohol 0 Yes JONGOH STU not Jonnie justa Prep Pad 6-25 defined l 04:10: Davian Barker Glucose Yes JONGOH STU as Jonnie justa Meter Test 6-25 directed l 04:10: Davian Barker Rosuvastati Yes JONGOH STU not Memoria n Calcium 6-25 defined l 04:10: Davian Barker Xopenex Yes JONGOH STU not Jonnie justa 6-25 defined l 04:10: Davian Barker Celebrex Yes JONGOH STU not Mem oria 6-25 defined l 04:10: Davian Barker MetFORMIN 0 Yes JONGOH STU 1 tablet Memoria HCl ER 6-25 with l 04:10: evening Davian Barker meal Viibryd 0 Yes JONGOH STU not Jonnie justa 6-25 defined l 04:10: Davian Barker Levocetiriz 0 Yes JONGOH STU not Memoria ine 6-25 defined l Dihydrochlo 04:10: Tico auguste ride 17 Advair 0 Yes JONGOH STU not Memor ia Diskus 6-25 defined l 04:10: Davian Barker Singulair 0 Yes JONGOH STU not Me moria 6-25 defined l 04:10: Davian Barker Gabapentin 0 Yes JONGOH STU not M emoria 6-25 defined l 04:10: Davian Barker Lancets 33G 2021-0 Yes JONGOH STU as Memoria 6-25 directed l 04:10: [place] 17 Glucose Yes DARRELL PERAZA as Jonnie justa Blood 6-25 directed l 04:10: [place] 17 Lancet Yes DARRELL PERAZA E11.9, as Memoria Device with 6-25 directed l Ejector 04:10: [place] Lancets Yes DARRELL PEARZA R73.03, M emoria 6-04 33G, as l 00:00: directed [place] Lancets Yes DARRELL PERAZA R73.03, M emoria 6-04 33G, as l 00:00: directed [place] 00 Lancets Yes DARRELL PERAZA R73.03, M emoria 6-04 33G, as l 00:00: directed Davian 00 MetFORMIN Yes DARRELL PERAZA 1 tablet Memoria HCl ER 6-03 with l 00:00: evening [place] meal MetFORMIN Yes DARRELL PERAZA 1 tablet Memoria HCl ER 6-03 with l 00:00: evening Davian 00 meal MetFORMIN 0 Yes DARRELL PERAZA 1 tablet Memoria HCl ER 6-03 with l 00:00: evening [place] 00 meal aspirin Yes 81mg QD Take 81 mg Meth [...] every Hospi ta 56 evening. l ascorbic Yes Take by Method i acid 2-[address] (VITAMIN C 09:39: Hospita ORAL) 56 l MAGNESIUM Yes Take by Metho di GLUCONATE 2-[address] ORAL 09:39: Hospita 56 l ZINC ORAL 2020-0 Yes Take by Metho di 2-[address] 09:39: Hospita 56 l MULTIVITAMI 2020-0 Yes Take by Met hodi N ORAL 2-[address] 09:39: Hospita 56 l omega-3s/dh 202-0 Yes Take by Met hodi a/epa/fish 2-[address] oil (OMEGA 09:39: Hospita 3 ORAL) 56 l coenzyme 2021-0 Yes 100mg QD Take 100 Meth heena Q10 (Co 2-[address] Q-10) 100 09:39: mouth Hospita mg capsule 56 daily. l ergocalcife 2020-0 Yes [id number] Q7D Take Meth heena rol 2-11 50,[address] (Vitamin 09:39: Units by Hospi ta D2) 50,000 56 mouth once l unit a week. capsule aspirin 2020-0 Yes 81mg QD Take 81 mg Meth heena (ECOTRIN) 2-[address] 81 MG 09:39: daily. Hospita enteric 56 l coated tablet triamcinolo 0 Yes into each M ethodi ne 2-[address] acetonide 09:39: Hospita (NASACORT 56 l NASL) omeprazole 2020-0 Yes 10mg QD Take 10 mg M ethodi (PriLOSEC) 2-[address] 10 MG 09:39: daily. Hospita capsule 56 l levocetiriz 2020-0 Yes 5mg QD Take 5 mg M ethodi ine (Xyzal) 2-[address] 5 MG tablet 09:39: every Hospi ta 56 evening. l ascorbic 202-0 Yes Take by Method i acid 2-[address] (VITAMIN C 09:39: Hospita ORAL) 56 l MAGNESIUM 2021-0 Yes Take by Metho di GLUCONATE 2-[address] ORAL 09:39: Hospita 56 l ZINC ORAL 2021-0 Yes Take by Metho di 2-[address] 09:39: Hospita 56 l MULTIVITAMI 202-0 Yes Take by Met hodi N ORAL 2-[address] 09:39: Hospita 56 l omega-3s/dh 2021-0 Yes Take by Met hodi a/epa/fish 2-[address] oil (OMEGA 09:39: Hospita 3 ORAL) 56 l coenzyme 2020-0 Yes 100mg QD Take 100 Meth heena Q10 (Co 2-[address] Q-10) 100 09:39: mouth Hospita mg capsule 56 daily. l ergocalcife 0 Yes [id number] Q7D Take Meth heena rol 2-11 50,000 [address] (Vitamin 09:39: Units by Hospi ta D2) 50,000 56 mouth once l unit a week. capsule gabapentin 2019-07 Yes Q.5D Take by Meth heena (NEURONTIN) 2-[address] 300 mg 00:00: (two) Hospita capsule 00 times a l day. gabapentin 2019-07 Yes Q.5D Take by Meth heena (NEURONTIN) 2-[address] 300 mg 00:00: (two) Hospita capsule 00 times a l day. levalbutero 2019-07 Yes INHALE 2 Me thodi l (XOPENEX 2-[address] HFA) 45 00:00: 4 TO 6 H Hospit a mcg/actuati 00 PRN WHILE l on inhaler AWAKE levalbutero 2019-07 Yes INHALE 2 Me thodi l (XOPENEX 2-[address] HFA) 45 00:00: 4 TO 6 H Hospit a mcg/actuati 00 PRN WHILE l on inhaler AWAKE rosuvastati 2019-07 Yes 10mg QD Take 10 mg Methodi n (CRESTOR) 1-[address] 10 mg 00:00: daily. Hospita tablet 00 l rosuvastati 2019-07 Yes 10mg QD Take 10 [...] TWICE DAILY. RINSE MOUTH AFTER USE. montelukast 2019-1 Yes 10mg QD Take 10 mg Methodi (SINGULAIR) 1-[address] 10 mg 00:00: daily. Hospita tablet 00 l Vital Signs Vital Name Observation Time Observation Value Comments Source Systolic blood 2022-09-04 17:10:00 120 mm[Hg] Univer sity of pressure [facility] Diastolic blood 2022-09-04 17:10:00 88 mm[Hg] Unive rsity of [facility] Heart rate 2022-09-04 17:10:00 60 /min Universi ty [facility] Respiratory rate 2022-09-04 17:10:00 14 /min Univ ersity [facility] Oxygen saturation in 2022-09-04 17:10:00 96 /min University of Arterial blood by [facility] Pulse oximetry Branch Body temperature 2022-09-04 16:45:00 36.56 Tere [facility] ersity [facility] Body height 2022-08-28 18:00:00 175.3 cm Universi ty [facility]ant Body weight 2022-08-28 18:00:00 83.915 kg Universi ty [facility] BMI 2022-08-28 18:00:00 27.32 kg/m2 Universi ty [facility] Systolic blood 2022-09-04 17:00:00 127 mm[Hg] Univer sity of [facility] Diastolic blood 2022-09-04 17:00:00 69 mm[Hg] Unive rsity of [facility] Heart rate 2022-09-04 17:00:00 59 /min Universi ty [facility] Respiratory rate 2022-09-04 17:00:00 17 /min Univ ersity [facility] Oxygen saturation in 2022-09-04 17:00:00 95 /min University of Arterial blood by [facility] Pulse oximetry Branch Body temperature 2022-09-04 16:45:00 36.56 Tere Univ ersity [facility] Body height 2022-08-28 18:00:00 175.3 cm Universi ty [facility] Body weight 2022-08-28 18:00:00 83.915 kg [facility] BMI 2022-08-28 18:00:00 27.32 kg/m2 [facility] Systolic (mm Hg) 2020-12-07 16:30:00 Jonnie hearn [place] Weight 2020-12-07 16:30:00 [facility] [place] Height 2020-12-07 16:30:00 [facility] [place] Temperature Oral (F) 2020-12-07 16:30:00 92.6 F [facility] [place] Heart Rate 2020-12-07 16:30:00 [facility] [place] Diastolic (mm Hg) 2020-12-07 16:30:00 Mem orial [place] Procedures Procedure Date / Time Performing Clinician Source Performed COLONOSCOPY 2022-09-04 16:04:00 Art Varela [facility] COLONOSCOPY (ENDO) 2022-09-04 16:02:13 [facility] COLONOSCOPY (ENDO) 2022-09-04 16:02:13 [facility] EXTERNAL PROVIDER 2022-09-03 06:01:00 Doctor Unassigned, No [facility] RECORDS Name Medical Branch EXTERNAL PROVIDER 2022-08-09 06:01:00 Doctor Unassigned, No [facility] RECORDS Name Medical Branch EXTERNAL PROVIDER 2022-08-09 06:01:00 Doctor Unassigned, No [facility] RECORDS [facility] DEXA AXIAL (HIP AND 2022-04-11 18:29:08 Requisition, Paper [facility] SPINE) [facility] ASSIGNMENT OF BENEFITS 2022-03-25 15:50:56 Doctor Unassigned, No [facility] Plan of Care Planned Activity Planned Date Details Comments Source Future Scheduled 2023-03-[address] [facility] Test 00:00:00 (Season Ended) [code = Medic al Center INFLUENZA VACCINE (Season Ended)] Future Scheduled 2023-03-[address] [facility] Test 00:00:00 (Season Ended) [code = Medic al Center INFLUENZA VACCINE (Season Ended)] Future Scheduled 2022-12-14 [facility] Test 05:01:26 malignant neoplasm of colon (procedure) [code = 082893345] Future Scheduled 2022-12-14 [facility] Test 05:01:26 malignant neoplasm of colon (procedure) [code = 430539270] Future Scheduled 2022-12-14 [facility] Test 05:01:26 malignant neoplasm of colon (procedure) [code = 883882570] Future Scheduled 2022-12-14 COVID-19 VACCINE (#1) [facility] Test 05:01:26 [code = COVID-19 VACCINE (#1)] Future Scheduled 2022-12-14 Hepatitis C screening [facility] Test 05:01:26 (procedure) [code = 286362812] Future Scheduled 2022-12-14 BREAST CANCER [facility] Test 05:01:26 SCREENING [code = BREAST CANCER SCREENING] Future Scheduled 2022-12-14 Screening for [facility] Test 05:01:26 malignant neoplasm of colon (procedure) [code = 780374580] Future Scheduled 2022-12-14 Screening for [facility] Test 05:01:26 malignant neoplasm of colon (procedure) [code = 603171546] Future Scheduled 2022-12-14 [facility]INGLES [facility]IN[facility] ([facility] 05:01:26 of 2) [code = SHINGLES VACCINES (1 of 2)] Future Scheduled 2022-12-14 65+ [facility]AL [facility] 05:01:26 VACCINE (1 - PCV) [code = 65+ PNEUMOCOCCAL VACCINE (1 - PCV)] Future Scheduled 2022-12-14 INFLUENZA VACCINE Method [facility] Test 05:01:26 [code = INFLUENZA VACCINE] Future Scheduled 2022-12-14 [facility] Test 05:01:26 malignant neoplasm of colon (procedure) [code = 114389406] Future Scheduled 2022-12-14 [facility] Test 05:01:26 malignant neoplasm of colon (procedure) [code = 710789049] Future Scheduled 2022-12-14 [facility] Test 05:01:26 malignant neoplasm of colon (procedure) [code = 589111212] Future Scheduled 2022-12-14 COVID-19 VACCINE (#1) [facility] Test 05:01:26 [code = COVID-19 VACCINE (#1)] Future Scheduled 2022-12-14 Hepatitis C screening [facility] Test 05:01:26 (procedure) [code = 544937302] Future Scheduled 2022-12-14 BREAST CANCER [facility] Test 05:01:26 SCREENING [code = BREAST CANCER SCREENING] Future Scheduled 2022-12-14 [facility] Test 05:01:26 malignant neoplasm of colon (procedure) [code = 693896800] Future Scheduled 2022-12-14 [facility] Test 05:01:26 malignant neoplasm of colon (procedure) [code = 091307246] Future Scheduled 2022-12-14 SHINGLES VACCINES (1 [facility] Test 05:01:26 of 2) [code = [...] RISK Medical C enter SCREENING] Future Scheduled 2022-07-[address] [...] FIRST YEAR if no IPPE)] Future Scheduled 2021-07-[address] [facility] [facility] Test 00:00:00 WELLNESS (YEAR 2 or Medical Center FIRST YEAR if no IPPE) [code = MEDICARE ANNUAL WELLNESS (YEAR 2 or FIRST YEAR if no IPPE)] Future Scheduled 2020 PNEUMOCOCCAL 65+ YRS [facility] Test 00:00:00 (1 - PCV) [code = Medical nter PNEUMOCOCCAL 65+ YRS (1 - PCV)] Future Scheduled 2020 PNEUMOCOCCAL 65+ YRS [facility] Test 00:00:00 (1 - PCV) [code = Medical Ce nter PNEUMOCOCCAL 65+ YRS (1 - PCV)] Future Scheduled 2005 SHINGLES VACCINES ([address] [facility] Test 00:00:00 of 2) [code = SHINGLES Medic al Center VACCINES (1 of 2)] Future Scheduled 2005 SHINGLES VACCINES ([address] [facility] Test 00:00:00 of 2) [code = SHINGLES Medic al Center VACCINES (1 of 2)] Future Scheduled 1974 DTAP/TDAP/TD [facility]ACCINES [facility] 00:00:00 (1 - Tdap) [code = Medical C enter DTAP/TDAP/TD VACCINES (1 - Tdap)] Future Scheduled 1974 DTAP/TDAP/TD [facility]ACCINES [facility] 00:00:00 (1 - Tdap) [code = Medical C enter DTAP/TDAP/TD VACCINES (1 - Tdap)] Future Scheduled 1973 HEPATITIS C [facility]CREENING [facility]00 [code = HEPATITIS C Medical Center SCREENING] Future Scheduled 1973 HEPATITIS C [facility]CRE[facility]ING [facility] 00:00:00 [code = HEPATITIS C Medical Center SCREENING] Future Scheduled [address] [facility] Test 00:00:00 Counseling and Medical Cente r Screening (12+) [code = Tobacco Cessation Counseling and Screening (12+)] Future Scheduled [address] [facility] Test 00:00:00 Counseling and Medical Cente r Screening (12+) [code = Tobacco Cessation Counseling and Screening (12+)] Future Scheduled 1956-01[birth year]15 COVID-19 VACCINE (#1) [facility] 00:00:00 [code = COVID-[address] VACCINE (#1)] Future Scheduled 1956-01-15 COVID-19 VACCINE (#1) [facility] 00:00:00 [code = COVID-[address] VACCINE (#1)] Future Scheduled [address] [facility] 00:[facility]:00 malignant neoplasm of Medica l Center colon (procedure) [code = 420723792] Future Scheduled [address] [facility] [facility] Test 00:00:00 malignant neoplasm of Medica l Center colon (procedure) [code = 987044026] Future Scheduled 1955 DXA SCAN [code = DXA [facility] Test 00:00:00 SCAN] [facility] Future Scheduled [address] [facility] Test 00:00:00 malignant neoplasm of Medica l Center colon (procedure) [code = 573847674] Future Scheduled [address] [facility] [facility] Test 00:00:00 malignant neoplasm of Medica l Center colon (procedure) [code = 657656974] Future Scheduled 1955 Sigmoidoscopy [facility]code [facility] [address] [facility] Test 00:00:00 malignant neoplasm of Medica l Center breast (procedure) [code = 835721562] Future Scheduled [address] [facility] Test 00:00:00 (combo) [code = CT Medical C enter Colonography (combo)] Future Scheduled [address] [facility] [facility] Test 00:00:00 malignant neoplasm of Medica l Center colon (procedure) [code = 912081445] Future Scheduled [address] [facility] [facility] Test 00:00:00 malignant neoplasm of Medica l Center colon (procedure) [code = 107861877] Future Scheduled 1955 DXA SCAN [code = DXA [facility] Test 00:00:00 SCAN] [facility] Future Scheduled [address] [facility] Test 00:00:00 malignant neoplasm of Medica l Center colon (procedure) [code = 597538209] Future Scheduled [address] [facility] [facility] Test 00:00:00 malignant neoplasm of Medica l Center colon (procedure) [code = 449259313] Future Scheduled 1955 Sigmoidoscopy [facility] Future Scheduled [address] [facility] Test 00:00:00 malignant neoplasm of Medica [facility] breast (procedure) [code = 506768446] Future Scheduled 1955 CT Colonography [facility] Charley payne Test 00:00:00 (combo) [code = CT Medical C enter Colonography (combo)] Encounters Start End Encounter Admission Attending Care Care Encounter Source Date/Time Date/Time Type Type Clinicians Facility Department ID 2022-12-14 Outpatient [id number] Memoria 18:15:07 [id number] Davian [id number] 2022-12-14 Outpatient [id number] Memoria 08:49:20 [id number]- [id number] [place] [id number] 2022-09-04 Outpatient [id number] Memoria 09:26:48 [id number] Davian [id number] 2021-09-06 Outpatient [facility] [id number] Common 13:38:02 Spirit - [facility] 2023-01-02 2023-01-02 Outpatient TUSHAR DELACRUZ [facility] [id number] [facility] 00:00:00 00:00:00 [facility] 2022-12-17 2022-12-17 Outpatient TUSHAR DELACRUZ [facility] [id number] [facility] 00:00:00 00:00:00 [facility] 2022-12-10 2022-12-10 Outside [facility] [id number] [facility] 00:00:00 00:00:00 [facility] 2022-12-10 2022-12-[address] [facility] [id number] 00:[facility] 00:00:00 Orders [facility] 2022-12-04 2022-12-04 [facility] [id number] 08:00:00 08:00:[address] [facility] 2022-12-04 2022-12-04 [facility] [id number] 08:00[facility] 08:00:[address] [facility] 2022-12-04 2022-12-04 [facility] [id number] [facility] 00:00:00 00:00:00 [facility] 2022-11-04 2022-11-[address] [facility] [id number] 00:[facility]00 00:00:00 Orders [facility] 2022-11-04 2022-11-[address] [facility] [id number] 00:[facility]00 00:00:00 Orders [facility] 2022-09-04 2022-09-04 Outpatient [facility] [id number] [facility] 09:12:00 11:24:00 ART Escobar f [facility] 2022-09-04 2022-09-04 [facility] 1.2.840.114 [id number] [facility] 09:12:00 11:24:00 Encounter Art escobar [id number] ity of [place] [id number] [facility] SURGICAL [id number] [place] [id number] [place] 2022-09-04 2022-09-04 Surgery [facility] [id number] [facility] 10:23:00 11:02:00 Art escobar [id number] [id number] [id number] [facility] 020 [address] 2022-09-03 2022-09-03 Orders Doctor ROBERTO [id number] Univers 00:00:00 00:00:00 Only Unassigned, DAVID [id number] ity of [place] [facility] [id number] [place] [id number] [facility] 00[address] 2022-04-11 2022-04-11 Outpatient R RADIOLOGY [facility] [id number] Univers 13:08:41 23:59:00 ity of [facility] 2022-04-11 2022-04-11 [facility] Radiology [facility] [id number] Univers 13:08:41 23:59:00 Encounter [place] [id number] ity [facility] [id number] [id number] [facility] [address] 2022-04-04 2022-04-04 Outpatient R RADIOLOGY [facility] [id number] Univers 00:00:00 00:00:00 ity of [facility] 2022-03-25 2022-03-25 Hospital Radiology [facility] [id number] [id number] Univers 11:00:41 23:59:00 Encounter [place] [id number] ity [facility] [id number] [id number] [facility] [address] 2022-03-25 2022-03-25 Outpatient R RADIOLOGY [facility] [id number] Univers 11:00:41 23:59:00 ity of [facility] 2022-03-25 2022-03-25 Orders Doctor MEJIA [id number] [id number] Univers 00:00:00 00:00:00 Only Unassigned, DAVID [id number] ity of [place] [facility] [id number] [place] [id number] [address] 2021-01-24 2021-01-24 Outpatient Endocrine Endocrine & [id number] eClinic 16:24:00 16:24:00 & Diabetes Gloria calix [facility] [place] [facility] 2021-01-03 2021-01-03 Outpatient Endocrine Endocrine & [id number] eClinic 12:50:00 12:50:00 & Diabetes alWor ks [facility] [place] [facility] 2021-01-01 2021-01-01 Outpatient Endocrine Endocrine & [id number] eClinic 16:32:00 16:32:00 & Diabetes alWor ks [facility] [place] [facility] 2020-12-28 2020-12-28 Outpatient CONFIRM CONFIRM [id number] eClinic 10:15:00 10:15:00 VIRTUAL VIRTUAL alWork s 2020-12-12 2020-12-12 Outpatient Endocrine Endocrine & [id number] eClinic 10:26:00 10:26:00 & Diabetes alWor ks [facility] [place] [facility] 2020-12-12 2020-12-12 Outpatient Endocrine Endocrine & [id number] eClinic 09:45:00 09:45:00 & Diabetes alWor ks [facility] [place] [facility] 2020-12-12 2020-12-12 Outpatient Endocrine Endocrine & 4 [id number] eClinic 09:41:00 09:41:00 & Diabetes alWor ks [facility] [place] [facility] 2020-12-08 2020-12-08 Outpatient Endocrine Endocrine & 4 [id number] eClinic 16:27:00 16:27:00 & Diabetes alWor ks [facility] [place] [facility] 2020-12-08 2020-12-08 Outpatient Endocrine Endocrine & 4 [id number] eClinic 16:27:00 16:27:00 & Diabetes alWor ks [facility] [place] [facility] 2020-12-08 2020-12-08 Outpatient Endocrine Endocrine & 4 [id number] eClinic 15:33:00 15:33:00 & Diabetes alWor ks [facility] [place] [facility] 2020-12-07 2020-12-07 Outpatient Endocrine Endocrine & 3 [id number] [facility] 11:30:00 11:30:00 & Diabetes Gloria calix [facility] Clinic [facility] [place], [facility] [place] [facility] 2020-11-22 2020-11-22 Outpatient [facility] [id number] [address] [place] 00:00:00 00:00:00 [address] 2020-08-17 2020-08-17 Outpatient [facility] [id number] [address] [place] 00:00:00 00:00:00 [address] Results This patient has no known results.
[2022-12-14] MEDS ORDERED: PHENAZOPYRIDINE 100MG TAB PO ONE (19:46)
[2022-12-14] MEDS ORDERED: NA CHLORIDE 0.9% 1,000 ML ONE (19:47)
[2022-12-14] MEDS ORDERED: KETOROLAC 30 MG/ML INJ ONE (19:47)
[2022-12-14 20:10] LABS: Specific Gravity 1.029 (1.005-1.030); Urine Bacteria <20 /HPF (<20); Urine Bilirubin NEGATIVE (Negative); Urine Blood Negative (Negative); Urine Clarity Extremely Turbid (Clear); Urine Color Light-Yellow (Yellow); Urine Glucose NEGATIVE (Negative); Urine Mucus 1+ /HPF (None Seen); Urine Protein TRACE (Negative); Urine Urobilinogen Normal (Normal)
[2022-12-14] MEDS ORDERED: HYDROCODONE/APAP 7.5/325 MG TAB ONE (20:39)
--- NOTE | 2022-12-14 20:51 | ER ---
Nurse's Notes [facility] Name: Monet Beverly Age: 67 yrs Sex: Female : 1955 Arrival Date: 12/14/2022 Time: 18:12 Bed 20 Private MD: Diagnosis: Unspecified renal colic-3mm UVJ calculus Presentation: 12/14 18:19 Chief complaint: Patient states: SEEN AND DC LESS THAN 6 HR AGO, DX WITH KIDNEY STONE. bp STATES NEED UPDATED PAIN MEDICATION. Coronavirus screen: At this time, the client does not indicate any symptoms associated with coronavirus-19. Ebola Screen: No symptoms or risks identified at this time. Initial Sepsis Screen: Does the patient meet any 2 criteria? No. Patient's initial sepsis screen is negative. Does the patient have a suspected source of infection? No. Patient's initial sepsis screen is negative. Risk Assessment: Do you want to hurt yourself or someone else? Patient reports no desire to harm self or others. Onset of symptoms is unknown. 18:19 Method Of Arrival: Ambulatory bp 18:19 Acuity: CARROLL 3 bp Historical: - Allergies: 18:20 Latex, Natural Rubber; bp - Immunization history:: Adult Immunizations up to date. - Social history:: Smoking status: Patient denies any tobacco usage or history of. Screenin:56 [facility] ED Fall Risk Assessment (Adult) History of falling in the last 3 months, kl including since admission No falls in past 3 months (0 pts) Confusion or Disorientation No (0 pts) Intoxicated or Sedated No (0 pts) Impaired Gait No (0 pts) Mobility Assist Device Used No (0 pt) Altered Elimination No (0 pt). Abuse screen: Denies threats or abuse. Nutritional screening: No deficits noted. Tuberculosis screening: No symptoms or risk factors identified. Assessment: 19:55 General: Appears uncomfortable, well groomed, well developed, Behavior is calm, kl cooperative. Pain: Complains of pain in right lower quadrant Quality of pain is described as aching, radiating, Pain began 1 day ago. Is intermittent. GI: Bowel sounds present X 4 quads. Abd is soft and non tender pt reports right flankpain. Vital Signs: 18:19 BP 128 / 60; Pulse 76; Resp 16; Temp 98; Pulse Ox 100% ; bp 20:29 BP 143 / 73; Pulse 63; Resp 18; Pulse Ox 96% on R/A; kl ED Course: 18:14 Patient arrived in ED. ts1 18:16 Gemini Rivas FNP-C is PHCP. snw 18:16 Maykel Davila MD is Attending Physician. snw 18:20 Triage completed. bp 18:20 Arm band placed on. bp 19:54 Inserted saline lock: 22 gauge in right antecubital area, using aseptic technique. kl Missed attempt(s): 22 gauge in right forearm. 19:54 Urine W/Microscopic (UAM) Sent. kl 19:56 Patient has correct armband on for positive identification. Bed in low position. Call kl light in reach. Side rails up X 1. 20:15 PHCP role handed off by Gemini Rivas FNP-C kb 20:15 Claudia Fraser FNP-C is PHCP. kb 21:19 No provider procedures requiring assistance completed. IV discontinued, intact, kl bleeding controlled, No redness/swelling at site. Pressure dressing applied. Administered Medications: 19:54 Drug: Phenazopyridine PO 200 mg Route: PO; kl 20:53 Follow up: Response: No adverse reaction kl 19:55 Drug: NS 0.9% IV 1000 ml Route: IV; Rate: 1 bolus; Site: right antecubital; kl 20:53 Follow up: IV Status: Completed infusion; IV Intake: 1000ml kl 19:55 Drug: Ketorolac IVP 30 mg Route: IVP; Site: right antecubital; kl 20:53 Follow up: Response: No adverse reaction; Pain is decreased kl 20:33 Drug: Hydrocodone-Acetaminophen PO (7.5 mg-325 mg) 1 tabs Route: PO; kl 20:53 Follow up: Response: No adverse reaction kl Medication: 21:19 VIS not applicable for this client. kl Intake: 20:53 IV: 1000ml; Total: 1000ml. kl Outcome: 20:50 Discharge ordered by . kb 21:19 Discharged to home ambulatory, with family. kl 21:19 Condition: improved 21:19 Discharge instructions given to patient, Instructed on discharge instructions, follow up and referral plans. medication usage, Demonstrated understanding of instructions, follow-up care, medications. 21:19 Patient left the ED. kl Signatures: Claudia Fraser FNP-C FNP-Ckb Fely Cartwright, RN RN Gemini Armenta, ONCOLOGY REP-C ONCOLOGY REP-Csnw Michael Orozco, RN RN bp Rosa Perez, [facility] ts1
--- NOTE | 2022-12-14 20:51 | EDPHYS ---
Physician Documentation [facility] Name: Monet Beverly Age: 67 yrs Sex: Female : 1955 Arrival Date: 12/14/2022 Time: 18:12 Bed 20 Private MD: ED Physician Maykel Davila HPI: 12/14 18:44 This 67 yrs old Unknown Female presents to ER via Ambulatory with complaints of snw Possible Kidney Stone. 18:44 The patient presents with pt here this am with significant abd/back pain, + 3mm right snw UVJ stone. Onset: The symptoms/episode began/occurred suddenly, today. Severity of symptoms: At their worst the symptoms were moderate. this am was the first episode. The patient has been recently seen by a physician: earlier today, The patient has been recently seen at the [facility] Emergency Department, for similar complaints labs were performed, CT scan was performed. Historical: - Allergies: 18:20 Latex, Natural Rubber; bp - Immunization history:: Adult Immunizations up to date. - Social history:: Smoking status: Patient denies any tobacco usage or history of. ROS: 18:43 Constitutional: Negative for fever, chills, and weight loss, Eyes: Negative for injury, snw pain, redness, and discharge, ENT: Negative for injury, pain, and discharge, Neck: Negative for injury, pain, and swelling, Cardiovascular: Negative for chest pain, palpitations, and edema, Respiratory: Negative for shortness of breath, cough, wheezing, and pleuritic chest pain, : Negative for injury, bleeding, discharge, and swelling, MS/Extremity: Negative for injury and deformity, Skin: Negative for injury, rash, and discoloration, Neuro: Negative for headache, weakness, numbness, tingling, and seizure, Psych: Negative for depression, anxiety, suicide ideation, homicidal ideation, and hallucinations. 18:43 Abdomen/GI: Positive for abdominal pain, nausea, of the right lower quadrant. 18:43 Back: Positive for radiated pain. Exam: 19:55 Head/Face: Normocephalic, atraumatic. Eyes: Pupils equal round and reactive to light, snw extra-ocular motions intact. Lids and lashes normal. Conjunctiva and sclera are non-icteric and not injected. Cornea within normal limits. Periorbital areas with no swelling, redness, or edema. ENT: Nares patent. No nasal discharge, no septal abnormalities noted. Tympanic membranes are normal and external auditory canals are clear. Oropharynx with no redness, swelling, or masses, exudates, or evidence of obstruction, uvula midline. Mucous membranes moist. Neck: Trachea midline, no thyromegaly or masses palpated, and no cervical lymphadenopathy. Supple, full range of motion without nuchal rigidity, or vertebral point tenderness. No Meningismus. Chest/axilla: Normal chest wall appearance and motion. Nontender with no deformity. No lesions are appreciated. Cardiovascular: Regular rate and rhythm with a normal S1 and S2. No gallops, murmurs, or rubs. Normal PMI, no JVD. No pulse deficits. Respiratory: Lungs have equal breath sounds bilaterally, clear to auscultation and percussion. No rales, rhonchi or wheezes noted. No increased work of breathing, no retractions or nasal flaring. Skin: Warm, dry with normal turgor. Normal color with no rashes, no lesions, and no evidence of cellulitis. MS/ Extremity: Pulses equal, no cyanosis. Neurovascular intact. Full, normal range of motion. Neuro: Awake and alert, GCS 15, oriented to person, place, time, and situation. Cranial nerves II-XII grossly intact. Motor strength 5/5 in all extremities. Sensory grossly intact. Cerebellar exam normal. Normal gait. 19:55 Constitutional: The patient appears alert, awake, anxious, uncomfortable. 19:55 Abdomen/GI: Inspection: abdomen appears normal, Bowel sounds: normal, Palpation: mild abdominal tenderness, in the right lower quadrant. 19:55 Back: vertebral tenderness, is not appreciated, muscle spasm, is not present. Vital Signs: 18:19 BP 128 / 60; Pulse 76; Resp 16; Temp 98; Pulse Ox 100% ; bp 20:29 BP 143 / 73; Pulse 63; Resp 18; Pulse Ox 96% on R/A; kl MDM: 18:18 Patient medically screened. snw 18:46 Differential diagnosis: kidney stone, nonspecific abdominal pain, urinary tract snw infection. Data reviewed: vital signs, nurses notes. Counseling: I had a detailed discussion with the patient and/or guardian regarding: the historical points, exam findings, and any diagnostic results supporting the discharge/admit diagnosis. 19:55 Special discussion: Based on the history and exam findings, there is no indication for snw further emergent testing or inpatient evaluation. I discussed with the patient/guardian the need to see the primary care provider for further evaluation of the symptoms. I discussed with the patient/guardian the need to see the urologist for further evaluation of the symptoms. 20:15 Transition of care: After a detail discussion of the patient's case, care is snw transferred to Claudia Fraser TECHNICAL ASSISTANT-C. 12/14 18:18 Order name: Urine W/Microscopic (UAM); Complete Time: 20:10 snw 12/14 18:18 Order name: Urine Strainer; Complete Time: 19:54 snw Administered Medications: 19:54 Drug: Phenazopyridine PO 200 mg Route: PO; kl 20:53 Follow up: Response: No adverse reaction kl 19:55 Drug: NS 0.9% IV 1000 ml Route: IV; Rate: 1 bolus; Site: right antecubital; kl 20:53 Follow up: IV Status: Completed infusion; IV Intake: 1000ml kl 19:55 Drug: Ketorolac IVP 30 mg Route: IVP; Site: right antecubital; kl 20:53 Follow up: Response: No adverse reaction; Pain is decreased kl 20:33 Drug: Hydrocodone-Acetaminophen PO (7.5 mg-325 mg) 1 tabs Route: PO; kl 20:53 Follow up: Response: No adverse reaction kl Disposition: 12/15 09:34 Co-signature as Attending Physician, Maykel Davila MD I reviewed the patient's care rn provided by the Advanced Practice Provider and agree with the diagnosis and treatment plan. Disposition Summary: 12/14/22 20:50 Discharge Ordered Location: Home kb Condition: Stable kb Diagnosis - Unspecified renal colic - 3mm UVJ calculus kb Followup: snw - With: Emergency Department - When: As needed - Reason: Worsening of condition Followup: snw - With: Private Physician - When: 2 - 3 days - Reason: Recheck today's complaints, Continuance of care, Re-evaluation by your physician Discharge Instructions: - Discharge Summary Sheet snw - Renal Colic snw - Dietary Guidelines to Help Prevent Kidney Stones snw - Rehydration, Adult snw Forms: - Medication Reconciliation Form kb - Thank You Letter kb - Antibiotic Education kb - Prescription Opioid Use kb Signatures: Dispatcher [employer] Claudia Muhammad, RAMONITAC SILVIO-Fely Stevenson, RN Gemini Gibson TECHNICAL ASSISTANT-C SILVIO-Jimyw Maykel Davila MD MD rn Peltier, Brian, RN RN bp
[2022-12-14 22:02] VITALS: TEMP 98
[2022-12-14 22:11] VITALS: BP 143/73; O2SAT 96
== END 2022-12-14 21:19 | disposition home or self-care (01) ==
LOC: ER 18:12
DX: N23 Unspecified renal colic (principal); N20.1 Calculus of ureter
CPT/HCPCS: 96361; 81001; 96374; 99284; J7030